=== PATIENT | female | born 1995 | race African-American/Black ===

== ENCOUNTER 2019-09-12 12:52 | Outpatient (CLI) | payer OTHER, SELFPAY ==
--- NOTE | ~2019-09-12 | US_ITS ---
EXAMINATION: US OB <=14 wk fetus w TV DATE: 09/12/2019 13:37 INDICATION: First trimester dating TECHNIQUE: Real-time pelvic transabdominal and transvaginal ultrasound was performed. COMPARISON: None. FINDINGS: The uterus measures 9.7 x 7.5 x 7.2 cm. There is an intrauterine gestational sac which gutierrez ears to be implanted in the lower uterine segment. A yolk sac is identified. cardiac motion is not identified. The crown rump length measures 6 mm , which correlates with an estimated gestat ional age of 6 weeks and 2 day(s) (+/-) 4 day(s). The right ovary measures 2.0 x 2.1 x 2.1 cm. The left ovary measures 2.1 x 2.6 x 2.3 cm. There is nor mal vascular flow in the ovaries. There is no free fluid in the pelvis. IMPRESSION: 1. Intrauterine which appears to be implanted in the lower uterine segment. heart ton es not identified which could be related to early gestation. Follow-up is recommended. 2. Estimated gestational age of 6 weeks and 2 day(s) (+/-) 4 day(s) with an estimated delivery date o f 05/05/2020. Reviewed, dictated and finalized at location A. IMPRESSION: 1. Intrauterine which appears to be implanted in the lower uterine se gment. heart tones not identified which could be related to early gestati on. Follow-up is recommended. 2. Estimated gestational age of 6 weeks and 2 day(s) (+/-) 4 day(s) with an est imated delivery date of 05/05/2020.
== END 2019-09-12 12:53 | disposition home or self-care (01) ==
LOC: ANHIMG 13:00
PROVIDERS: PCP Physician Assistant; Visit Provider Physician Assistant
DX: Z34.91 Encounter for supervision of normal pregnancy, unspecified, first trimester (principal); Z3A.01 Less than 8 weeks gestation of pregnancy
CPT/HCPCS: 76801; 76817

== ENCOUNTER 2020-07-11 12:33 | Outpatient (CLI) | payer OTHER, SELFPAY ==
--- NOTE | ~2020-07-11 | US_ITS ---
EXAMINATION: US OB <= 14 weeks fetus DATE: 07/11/2020 13:01 INDICATION: Supervision of normal . TECHNIQUE: Real-time transabdominal pelvic ultrasound was performed. COMPARISON: Ultrasound 09/12/2019 FINDINGS: The uterus measures 9.6 x 7.7 x 8.7 cm. There is an intrauterine gestational sac. A yolk sac is ident ified. The crown rump length measures 3.1 cm, which correlates with an estimated gestational a ge of 10 weeks and 0 day(s) (+/-) 6 day(s). heart motion is identified measuring 171 beats per minute (bpm) by M-mode Doppler. The ovaries are not visualized. There is no free fluid in the pelvis. IMPRESSION: 1. Single living intrauterine gestation with estimated date of delivery of 02/06/2021. Reviewed, dictated and finalized at location A. IMPRESSION: 1. Single living intrauterine gestation with estimated date of delivery of .
== END 2020-07-11 12:34 | disposition home or self-care (01) ==
LOC: ANHIMG 12:36
PROVIDERS: PCP Physician Assistant; Visit Provider Obstetrics & Gynecology
DX: Z34.90 Encounter for supervision of normal pregnancy, unspecified, unspecified trimester (principal); Z3A.00 Weeks of gestation of pregnancy not specified
CPT/HCPCS: 76801

== ENCOUNTER 2020-08-22 07:52 | Outpatient (CLI) | payer OTHER, SELFPAY ==
--- NOTE | ~2020-08-22 | US_ITS ---
EXAMINATION: US OB follow up EXAM DATE: 08/22/2020 08:25 INDICATION: Hx of miscarriage; Routine care. 2nd trimester. TECHNIQUE: Pelvic obstetrical transabdominal sonogram was performed by a technologist. There are mu ltiple grayscale and Doppler images available for interpretation. Comparison is made to prior examina tion from 07/11/2020. FINDINGS: There is a single fetus identified in vertex presentation with a heart rate of 152 beats pe r minute. The placenta is located in the fundal position. There is no sonographic evidence of retrop lacental hemorrhage identified. BIOMETRIC DATA: Biparietal diameter (BPD): 3.3 cm ----------------> 16 weeks 1 day. Head circumference (HC): 11.8 cm ----------------> 15 weeks 6 days. Abdominal circumference (AC): 10.9 cm ----------> 16 weeks 5 days. Femur length (FL): 1.9 cm --------------------------> 15 weeks 5 days. These measurements are concordant. HC/AC ratio is 1.08 (The 5th -- 95th percentile range is 1.06-1.33. Estimated weight is 149 g +/- 22 g. This is the 22nd percentile when the currently reported cl inical gestation age 16 weeks 4 days, clinical estimated date of delivery (KATHERIN-OPE) 01/30 is used. Fe emma estimated gestational age based on measurements from this exam is 16 weeks 1 day, with an estimat ed date of delivery (KATHERIN-AUA) 02/05. IMPRESSION: 1. Single fetus in vertex presentation with heart rate 152 beats per minute. 2. Estimated weight of 149 grams, 22nd percentile using the currently reported clinical gestat ion age of 16 weeks 4 days, KATHERIN(OPE) 02/02. Reviewed, dictated and finalized at location A. IMPRESSION: 1. Single fetus in vertex presentation with heart rate 152 beats per minute. 2. Estimated weight of 149 grams, 22nd percentile using the currently re ported clinical gestation age of 16 weeks 4 days, KATHERIN(OPE) 02/02.
== END 2020-08-22 07:53 | disposition home or self-care (01) ==
PROVIDERS: PCP Physician Assistant; Visit Provider Obstetrics & Gynecology
DX: Z34.92 Encounter for supervision of normal pregnancy, unspecified, second trimester (principal); Z3A.16 16 weeks gestation of pregnancy
CPT/HCPCS: 76816

== ENCOUNTER 2020-10-03 14:40 | Outpatient (CLI) | payer OTHER, SELFPAY ==
--- NOTE | ~2020-10-03 | US_ITS ---
US OB /maternal detail DATE: 10/03/2020 15:59 INDICATION: anatomy screen TECHNIQUE: Real-time imaging and Doppler analysis COMPARISON: 08/22/2020 obstetrical ultrasound FINDINGS: Live giraldo intrauterine gestation, fetus in breech presentation, longitudinal lie. Post erior placenta. Normal amount of amniotic fluid by subjective assessment. No cerebral ventriculomegaly. The cerebellum and cisterna magna and nuchal fold appear n ormal. The spine is normal. There is a four-chamber heart with Doppler heart rate of 145 bpm. diaphragm is intact. Fluid is demonstrated in the stomach and urinary bladder. The f etal kidneys appear normal without hydronephrosis. Three-vessel umbilical cord with normal appearing insertion at abdominal wall. male external genitalia. Biparietal diameter 5.06 cm; 21 weeks 2 days Head circumference 19.24 cm; 21 weeks 3 days Abdominal circumference 17.15 cm; 22 weeks 1 day Femur length 3.67 cm; 21 weeks 5 days Composite age by Hadlock formula is 21 weeks 5 days +/- 1 week 4 days, with KATHERIN of 02/08/2021 (compared to KATHERIN of 02/06/2021 from 07/11/2020 obstetrical ultrasound examination). Estimated weight is 456 +/- 68 g. Head circumference/abdominal circumference 1.12, within normal range of 1.06-1.24 Femur length/abdominal circumference 21.42, within normal range of 20.00-24.00 Femur length/head circumference 19.10, within normal range of 17.69-20.23. IMPRESSION: Estimated gestational age of 21 weeks 5 days +/- 1 week 4 days KATHERIN 02/08/2021 Normal anatomy screen Breech presentation Reviewed, dictated and finalized at [facility]. Reviewed, dictated and finalized at location A.
== END 2020-10-03 14:41 | disposition home or self-care (01) ==
LOC: ANHIMG 14:42
PROVIDERS: PCP Physician Assistant; Visit Provider Obstetrics & Gynecology
DX: O32.1XX0 Maternal care for breech presentation, not applicable or unspecified (principal); Z3A.00 Weeks of gestation of pregnancy not specified
CPT/HCPCS: 76805

== ENCOUNTER 2020-12-01 17:01 | Outpatient (CLI) | payer OTHER, SELFPAY ==
--- NOTE | ~2020-12-01 | US_ITS ---
EXAMINATION: US OB follow up DATE: 12/01/2020 17:43 INDICATION: Supervision of normal TECHNIQUE: Real-time transabdominal obstetric ultrasound. FINDINGS: Comparison to multiple prior studies sequentially, with oldest reviewed study dated 2020. There is a single living fetus in vertex presentation. The placenta is posterior without placenta pr evia. cardiac activity and movement is noted with a heart rate of 145 beats per minute. T he amniotic fluid volume is normal. JUAN CARLOS measures 12.7 cm. The following biometric data were obtained: BPD: 77mm corresponds to gestational age 30 weeks 5 days. Head circumference: 275mm corresponds to gestational age 30 weeks 0 days. Abdominal circumference: 259mm corresponds to gestational age 30 weeks 0 days. Femur length: 55mm corresponds to gestational age 29 weeks 0 days. Estimated weight: 1451grams +/- 217grams.] IMPRESSION: 1. Single living intrauterine in vertex presentation with an estimated gestational age of the weeks 1 days by inititial ultrasound. EDC by initial ultrasound is 02/08/2021. Appropriate interv al growth. 2. Normal placenta. Reviewed, dictated and finalized at location A. IMPRESSION: 1. Single living intrauterine in vertex presentation with an estimat ed gestational age of the weeks 1 days by inititial ultrasound. EDC by initial ultrasound is 02/08/2021. Appropriate interval growth. 2. Normal placenta.
== END 2020-12-01 17:02 | disposition home or self-care (01) ==
LOC: ANHIMG 17:05
PROVIDERS: PCP Obstetrics & Gynecology; Visit Provider Physician Assistant
DX: Z34.92 Encounter for supervision of normal pregnancy, unspecified, second trimester (principal); Z3A.00 Weeks of gestation of pregnancy not specified
CPT/HCPCS: 76816